=== PATIENT | female | born 1975 | race Caucasian/White ===

== ENCOUNTER → 2023-07-14 | Day surgery (SDC) | payer OTHER ==
[~2023-07-14] MED LIST: ANTACID168 MG PO; LIDOCAINE HCL 2% LOCAL INJ 5 ML SDV VIAL INJ ONE; MIDAZOLAM HCL 2 MG/2 ML VIAL ONE; PROPOFOL IV EMULSION 10 MG/ML 20 ML VIAL ONE
[2023-07-14] MEDS: LACTATED RINGER'S 1,000 ML ONE (11:41)
[2023-07-14 12:50] VITALS: TEMP 97.3
[2023-07-14 13:15] VITALS: BP 130/76; PULSE 74; RESP 16; O2SAT 96
[2023-07-14] MEDS: ONDANSETRON HCL 4 MG ORAL DISINTEGRATING TAB ONE (13:30)
== END | disposition home or self-care (01) ==
LOC: OR 11:05
PROVIDERS: ATTEND Internal Medicine Gastroenterology
DX: Z12.11 Encounter for screening for malignant neoplasm of colon (principal); D12.0 Benign neoplasm of cecum; D12.2 Benign neoplasm of ascending colon; D12.3 Benign neoplasm of transverse colon; D12.4 Benign neoplasm of descending colon; D12.5 Benign neoplasm of sigmoid colon; K59.00 Constipation, unspecified; K64.8 Other hemorrhoids; K21.9 Gastro-esophageal reflux disease without esophagitis; R03.0 Elevated blood-pressure reading, without diagnosis of hypertension; E78.5 Hyperlipidemia, unspecified; F17.200 Nicotine dependence, unspecified, uncomplicated
CPT/HCPCS: 45380; 45384; 45385; 93005; J2001; J2250; J2704; J7121; Q0162; 45378